=== PATIENT | female | born 1980 ===

== ENCOUNTER 2016-11-30 00:34 | Emergency (ER) | payer OTHER ==
[2016-11-30] MEDS ORDERED: Acetaminophen/HYDROcodone 325-10 MG Tab PO ONE (00:35)
[2016-11-30 00:42] VITALS: BP 105/66
[2016-11-30] MEDS ORDERED: Ondansetron 4 MG/2 ML SDV IV ONE ×2 (01:11→03:30)
[2016-11-30] MEDS ORDERED: Sodium Chloride 0.9% 1,000 ML IV ONE ×2 (01:12→03:32)
[2016-11-30] MEDS ORDERED: Morphine 2 MG/ML Syringe IVPUSH ONE (01:12)
--- NOTE | 2016-11-30 01:16 | EDM.PDOC ---
ED HPI GENERAL MEDICAL PROBLEM - General Chief Complaint: Abdominal Pain Stated Complaint: SEVERE ABD PAIN [id number] Time Seen by Provider: 11/30/16 01:14 Source of Information: Reports: Patient History Limitations: Reports: No Limitations - History of Present Illness INITIAL COMMENTS - FREE TEXT/NARRATIVE: onset recurrent low abd pain since 10pm. had same last month but wasn't eval'. Bilateral Lower Abdomen Pain Score (Numeric/FACES): 9 - Related Data Allergies Allergy/AdvReac Type Severity Reaction Status Date / Time No Known Allergies Allergy Verified 11/30/16 00:42 Home Meds: Home Meds Spironolactone [Aldactone] 100 mg PO DAILY 11/30/16 [History] Past Medical History - Past Health History Medical/Surgical History: Denies Medical/Surgical History Social & Family History - Tobacco Use Smoking Status *Q: Never Smoker Second Hand Smoke Exposure: No - Recreational Drug Use Recreational Drug Use: No ED ROS GENERAL - Review of Systems Review Of Systems: ROS reveals no pertinent complaints other than HPI. ED EXAM, GI/ABD - Physical Exam Exam: See Below Exam Limited By: No Limitations General Appearance: Alert, WD/WN, Moderate Distress, Other (crying) Ears: Hearing Grossly Normal Throat/Mouth: Normal Voice, No Airway Compromise Head: Atraumatic Neck: Non-Tender, Full Range of Motion Respiratory/Chest: No Respiratory Distress Cardiovascular: Regular Rate, Rhythm GI/Abdominal Exam: Guarding, Rebound, Tender, Other (periumb) Neurological: Alert, Oriented, Normal Cognition, Normal Gait, No Motor/Sensory Deficits Psychiatric: Tearful Skin Exam: Warm, Dry, Normal Color Lymphatic: No Adenopathy Course - Vital Signs Last Recorded V/S: Last Vital Signs Temp 36.8 C 11/30/16 00:39 Pulse 117 H 11/30/16 00:39 Resp 20 11/30/16 00:39 BP 105/66 11/30/16 00:39 Pulse Ox 98 11/30/16 00:39 - Orders/Labs/Meds Labs: Laboratory Tests 11/30/16 11/30/16 Range/Units 00:50 00:50 WBC 14.0 H (5.0-10.0) 10^3/uL RBC 4.32 (4.2-5.4) 10^6/uL Hgb 13.5 (12.0-16.0) g/dL Hct 39.8 (37.0-47.0) % MCV 92.1 (80-100) fL MCH 31.3 (27.0-34.0) pg MCHC 33.9 (33.0-35.0) g/dL Plt Count 195 (150-450) 10^3/uL Neut % (Auto) 69.1 (42.2-75.2) % Lymph % (Auto) 23.3 (20.5-50.1) % [place] % (Auto) 6.4 (2-8) % Eos % (Auto) 1.1 (1.0-3.0) % Baso % (Auto) 0.1 (0.0-1.0) % Sodium 139 (135-145) mmol/L Potassium 3.7 (3.6-5.0) mmol/L Chloride 102 (101-111) mmol/L Carbon Dioxide 26.0 (21.0-31.0) mmol/L Anion Gap 14.7 BUN 10 (7-18) mg/dL Creatinine 0.8 (0.6-1.3) mg/dL Est Cr Clr Drug Dosing 82.74 mL/min Estimated GFR (MDRD) > 60 BUN/Creatinine Ratio 12.50 Glucose 90 (74-105) mg/dL Calcium 9.4 (8.4-10.2) mg/dl Total Bilirubin 0.5 (0.2-1.0) mg/dL AST 18 (10-42) IU/L ALT 10 (10-60) IU/L Alkaline Phosphatase 32 L (42-121) IU/L Total Protein 6.9 (6.7-8.2) g/dl Albumin 4.3 (3.2-5.5) g/dl Globulin 2.6 Albumin/Globulin Ratio 1.65 Amylase 52 (28-100) U/L Lipase 35 (22-51) U/L HCG, Qual Negative Meds: Medications Discontinued Medications Generic Name Dose Route Start Last Admin Trade Name Freq PRN Reason Stop Dose Admin Hydrocodone Bitart/Acetaminophen Confirm 11/30/16 03:01 11/30/16 03:27 [place] 325-10 Mg Administered 11/30/16 03:02 Not Given Dose 1 tab .ROUTE .STK-MED ONE Hydromorphone HCl 1 mg 11/30/16 01:44 11/30/16 02:07 Dilaudid IVPUSH 11/30/16 01:45 1 mg ONETIME ONE Administration Sodium Chloride 1,000 mls @ 500 mls/hr 11/30/16 01:12 11/30/16 01:19 Normal Saline IV 11/30/16 03:11 500 mls/hr .BOLUS ONE Administration Sodium Chloride 1,000 mls @ 999 mls/hr 11/30/16 03:32 11/30/16 03:36 Normal Saline IV 11/30/16 04:32 999 mls/hr .BOLUS ONE Administration Iopamidol 75 ml 11/30/16 01:27 11/30/16 01:36 Isovue-300 (61%) IVPUSH 11/30/16 01:28 75 ml ONETIME ONE Administration Morphine Sulfate 2 mg 11/30/16 01:12 11/30/16 01:20 Morphine IVPUSH 11/30/16 01:13 2 mg ONETIME ONE Administration Ondansetron HCl 4 mg 11/30/16 01:11 11/30/16 01:19 Zofran IV 11/30/16 01:12 4 mg ONETIME ONE Administration Ondansetron HCl 4 mg 11/30/16 03:30 11/30/16 03:36 Zofran IV 11/30/16 03:31 4 mg ONETIME ONE Administration - Re-Assessments/Exams Free Text/Narrative Re-Assessment/Exam: 11/30/16 02:53 case & results discussed with Dr Jaime who rec' rest with Rx and pelvic US Thursday and return if there is any change or concern. Discussed with Pt & spouse who feel comfortable about it. 11/30/16 04:41 standing 89/68, supine 86/58. feeling fine and wants to go home to sleep. but will return if things get worse. Departure - Departure Time of Disposition: 04:43 Disposition: Home, Self-Care 01 Condition: Good Clinical Impression: Ruptured ovarian cyst - Discharge Information Instructions: Ovarian Cyst, [id number] Forms: ED Department Discharge Additional Instructions: 1) rest and avoid bending lifting straining 2) see clinic Thursday for PELVIC ULTRASOUND 3) must return if develop light headedness, dizziness, worsening of pain. rx given; vicodin 5/325mg tid prn x 12
[2016-11-30] MEDS ORDERED: Iopamidol 612 MG/ML 75 ML Bottle IVPUSH ONE (01:27)
[2016-11-30 01:30] LABS: CHLORIDE,CL 102 mmol/L (101-111); SODIUM,NA 139 mmol/L (135-145)
[2016-11-30] MEDS ORDERED: HYDROmorphone 1 MG/ML Syringe IVPUSH ONE (01:44)
[2016-11-30] MEDS ORDERED: Acetaminophen/HYDROcodone 325-10 MG Tab ONE (03:01)
== END 2016-11-30 04:44 | disposition home or self-care (01) ==
LOC: DL.ED 00:34
DX: N83.201 Unspecified ovarian cyst, right side (principal); Z79.899 Other long term (current) drug therapy
CPT/HCPCS: 36415; 74177; 80053; 82150; 83690; 84703; 85025; 96361; 96374; 96375; 96376; 99284; A9270; J1170; J2270; J2405; J7030; Q9967

== ENCOUNTER 2021-03-23 10:17 | Emergency (ER) | payer SELFPAY ==
[2021-03-23 10:46] VITALS: BP 105/76; PULSE 96
--- NOTE | 2021-03-23 11:11 | EDM.PDOC ---
ED HPI GENERAL MEDICAL PROBLEM - General Chief Complaint: Genitourinary Problem Stated Complaint: UTI Time Seen by Provider: 03/23/21 11:09 Source of Information: Reports: Patient, RN, RN Notes Reviewed History Limitations: Reports: No Limitations - History of Present Illness INITIAL COMMENTS - FREE TEXT/NARRATIVE: Pt presents to ED via POV with c/o urinary urgency that began last evening. Pt states that she took Pyridium for the burning and pain. Denies fever/chills, flank pain, or N/V. Onset: Today Duration: Constant Location: Reports: Other (Urinary) Quality: Reports: Burning, Pressure Severity: Severe Improves with: Reports: None Worsens with: Reports: Other (Voiding urine) Associated Symptoms: Reports: No Other Symptoms - Related Data Allergies Allergy/AdvReac Type Severity Reaction Status Date / Time No Known Allergies Allergy Verified 03/23/21 10:34 Past Medical History - Past Health History Medical/Surgical History: Denies Medical/Surgical History [employer] History: Reports: - Past Surgical History Female Surgical History: Reports: Section Social & Family History - Tobacco Use Tobacco Use Status *Q: Never Tobacco User Second Hand Smoke Exposure: No - Caffeine Use Caffeine Use: Reports: Coffee - Recreational Drug Use Recreational Drug Use: No ED ROS GENERAL - Review of Systems Review Of Systems: Comprehensive ROS is negative, except as noted in HPI. ED EXAM, RENAL/ - Physical Exam Exam: See Below Exam Limited By: No Limitations General Appearance: Alert, WD/WN, No Apparent Distress Respiratory/Chest: No Respiratory Distress Cardiovascular: Regular Rate, Rhythm GI/Abdominal: Normal Bowel Sounds, Soft, Tender (Suprapubic tenderness). No: Guarding, Rigid, Rebound Back Exam: No: CVA Tenderness (L), CVA Tenderness (R) Extremities: Normal Inspection Neurological: Alert, Oriented, No Motor/Sensory Deficits Psychiatric: Normal Mood Skin Exam: Warm, Dry, Intact, Normal Color, No Rash Course - Vital Signs Last Recorded V/S: Last Vital Signs Temp 98.3 F 03/23/21 10:34 Pulse 96 03/23/21 10:34 Resp 20 03/23/21 10:34 BP 105/76 03/23/21 10:34 Pulse Ox 97 03/23/21 10:34 - Orders/Labs/Meds Orders: Active Orders 24 hr Category Date Time Status CULTURE URINE [RM] Stat Lab 03/23/21 10:35 Received UA W/MICROSCOPIC [URIN] Stat Lab 03/23/21 10:35 Results Labs: Laboratory Tests 03/23/21 03/23/21 Range/Units 10:35 10:35 Urine Color Dark yellow (YELLOW) Urine Appearance Slightly cloudy (CLEAR) Urine pH 7.0 (5.0-9.0) Ur Specific [place] 1.010 (1.005-1.030) Urine Protein Negative (NEGATIVE) Urine Glucose (UA) 100 H (NEGATIVE) Urine Ketones Negative (NEGATIVE) Urine Occult Blood Trace-intact H (NEGATIVE) Urine Nitrite Positive H (NEGATIVE) Urine Bilirubin Negative (NEGATIVE) Urine Urobilinogen 1.0 (0.2-1.0) mg/dL Ur Leukocyte Esterase Large H (NEGATIVE) Urine HCG, Qual Negative Departure - Departure Time of Disposition: 11:13 Disposition: Home, Self-Care 01 Condition: Good Clinical Impression: UTI, Urinary tract infectious disease - Discharge Information *PRESCRIPTION DRUG MONITORING PROGRAM REVIEWED*: Not Applicable *COPY OF PRESCRIPTION DRUG MONITORING REPORT IN PATIENT OFE: Not Applicable Instructions: Urinary Tract Infection, Adult Forms: ED Department Discharge Additional Instructions: Rx: Cephalexin 500mg Rx: Pyridium 200mg Drink plenty of water. Follow up in clinic if not improving as expected. Sepsis Event Note (ED) - Evaluation Sepsis Screening Result: No Definite Risk - Focused Exam Vital Signs: Vital Signs Temp Pulse Resp BP Pulse Ox 03/23/21 10:34 98.3 F 96 20 105/76 97 - My Orders Last 24 Hours: My Active Orders 03/23/21 10:35 CULTURE URINE [RM] Stat UA W/MICROSCOPIC [URIN] Stat - Assessment/Plan Last 24 Hours: My Active Orders 03/23/21 10:35 CULTURE URINE [RM] Stat UA W/MICROSCOPIC [URIN] Stat
== END 2021-03-23 11:22 | disposition home or self-care (01) ==
LOC: DL.ED 10:17
DX: N39.0 Urinary tract infection, site not specified (principal)
CPT/HCPCS: 81001; 81025; 87086; 87088; 87186; 99283

== ENCOUNTER 2021-04-07 10:05 | Emergency (ER) | payer SELFPAY ==
[2021-04-07 10:41] VITALS: BP 127/91; PULSE 95
[2021-04-07] MEDS ORDERED: cefTRIAXone 1 GM, Lidocaine 1% 2.1 ML IM ONE ×2 (11:04)
== END 2021-04-07 11:35 | disposition home or self-care (01) ==
LOC: DL.ED 10:05
DX: N39.0 Urinary tract infection, site not specified (principal)
CPT/HCPCS: 81001; 81025; 87086; 87088; 87186; 96372; 99283; J0696